=== PATIENT | female | born 1965 | race Caucasian/White ===

== ENCOUNTER 2023-03-22 01:36 | Emergency (ER) | payer MEDICAID ==
[~2023-03-22] VITALS: Ht 162.6 cm; Wt 71.7 kg
[2023-03-22 01:41] VITALS: BP_SYST 135
--- NOTE | 2023-03-22 01:41 | NUR ---
Triaged and placed patient to ER bed 6 for evaluation. Report given to NAYA ALVA for continuity of care. Bed placed in lowest position with side rails up. Instructed to notify ED staff for any changes in condition or worsening of symptoms while waiting to be seen by a provider. Patient verbalized understanding.
--- NOTE | 2023-03-22 02:19 | NUR ---
Dr. TRAVIS at bedside examining the patient.
[2023-03-22] MEDS ORDERED: ONDA8TAB60 PO (02:28)
[2023-03-22] MEDS ORDERED: IBUP-1971 PO (02:28)
[2023-03-22] MEDS ORDERED: ONDANSETRON 4 MG ODT TAB PO ONE (02:30)
[2023-03-22] MEDS ORDERED: KETOROLAC TROMETHAMINE 60 MG/2 ML VIAL IM ONE (02:30)
[2023-03-22 02:44] LABS: BILIRUBIN,URINE NEGATIVE (NEGATIVE); BLOOD, URINE NEGATIVE (NEGATIVE); COLOR,URINE YELLOW (YELLOW); GLUCOSE,URINE NEGATIVE (NEGATIVE); KETONES,URINE TRACE (NEGATIVE); LEUKOCYTE ESTERASE ,URINE TRACE (NEGATIVE); NITRITE, URINE NEGATIVE (NEGATIVE); PH,URINE 5.5 (5.0-8.0); PROTEIN URINE NEGATIVE (NEGATIVE); UROBILINOGEN,URINE 0.2 (0.2-1.0)
[2023-03-22 02:53] LABS: CLARITY/URINE SLIGHTLY CLOUDY (CLEAR)
[2023-03-22 02:54] LABS: BACTERIA,URINE FEW /HPF (None Seen); RBC,URINE 0-3 /HPF (0-3)
[2023-03-22] MEDS ORDERED: CIPR500T5 PO (03:00)
--- NOTE | 2023-03-22 03:00 | NUR ---
MD AT BEDSIDE TO DISCUSS FINDINGS AND DISCHARGE PLANS.
--- NOTE | 2023-03-22 03:28 | NUR ---
Patient given written and verbal discharge instructions and verbalizes understanding. ER MD TRAVIS discussed with patient the results and treatment provided. Patient in stable condition. ID arm band removed. IV catheter removed intact and dressing applied, no active bleeding. Rx of CIPRO AND MOTRIN AND ZOFRAN given. Patient educated on pain management and to follow up with PMD. Pain Scale . Opportunity for questions provided and answered. Medication side effect fact sheet provided.
[2023-03-22 03:34] VITALS: BP_SYST 134
== END 2023-03-22 03:34 | disposition home or self-care (01) ==
LOC: SED 01:36
DX: R10.32 Left lower quadrant pain (principal); R11.0 Nausea; R19.7 Diarrhea, unspecified; Z79.899 Other long term (current) drug therapy
CPT/HCPCS: 99283; 81000; 87086; 96372; Q0162; J1885